=== PATIENT | female | born 1965 ===

== ENCOUNTER 2017-01-14 20:29 | Emergency (ER) | payer SELFPAY ==
[2017-01-14 20:29] VITALS: BMI 25.0
[2017-01-14 20:36] VITALS: BP 123/74; PULSE 81; RESP 18; TEMP 99; O2SAT 99
--- NOTE | 2017-01-14 20:50 | ED PDOC ---
HPI: General Adult Time Seen by Provider: 01/14/17 20:37 Chief Complaint (Nursing): Foreign Body Chief Complaint (Provider): Foreign Body History Per: Patient History/Exam Limitations: no limitations Onset/Duration Of Symptoms: Mins (30 minutes prior to arrival) Current Symptoms Are (Timing): Still Present Severity: Mild Pain Scale Rating Of: 0 Additional Complaint(s): 51 year old female with no pertinent medical history presents to the ED with complaints of getting a foreign object in her ear 30x minutes prior to arrival. She reports that she was cleaning her ears with a wet cotton swab and one of the tip got lodged into her left ear. She denies having any ear pain. PMD: not provided Past Medical History Reviewed: Historical Data, Nursing Documentation, Vital Signs Vital Signs: Last Vital Signs Temp 99 F 01/14/17 20:34 Pulse 81 01/14/17 20:34 Resp 18 01/14/17 20:34 BP 123/74 01/14/17 20:34 Pulse Ox 99 01/14/17 23:33 - Medical History PMH: No Chronic Diseases - Surgical History Surgical History: No Surg Hx - Family History Family History: States: No Known Family Hx - Social History Current smoker - smoking cessation education provided: Yes Drugs: Other (yes) - Immunization History Hx Tetanus Toxoid Vaccination: No Hx Influenza Vaccination: Yes Hx Pneumococcal Vaccination: No - Allergies Allergies/Adverse Reactions: Allergies Allergy/AdvReac Type Severity Reaction Status Date / Time No Known Allergies Allergy Verified 01/25/15 10:53 Review of Systems ROS Statement: Except As Marked, All Systems Reviewed And Found Negative ENT: Negative for: Ear Pain Physical Exam - Reviewed Nursing Documentation Reviewed: Yes Vital Signs Reviewed: Yes - Physical Exam Appears: Positive for: Well, Non-toxic, No Acute Distress Head Exam: Positive for: ATRAUMATIC, NORMOCEPHALIC Skin: Positive for: Normal Color, Warm, Dry ENT: Positive for: Other (cotton in left ear noted.) Cardiovascular/Chest: Positive for: Regular Rate, Rhythm Respiratory: Positive for: Normal Breath Sounds. Negative for: Respiratory Distress Neurologic/Psych: Positive for: Alert, Oriented (3x) - ECG O2 Sat by Pulse Oximetry: 99 (RA) Pulse Ox Interpretation: Normal Medical Decision Making Medical Decision Makin:37 Initial impression: 51 year old female with cotton in her left ear. Initial plan: Verbal consent acquired. Cotton ball is removed. TM is intact. No signs of erythema. Scribe Attestation: Documented by Halley Cobb, acting as a scribe for Elma Daniel PA-C. Provider Scribe Attestation: All medical record entries made by the Scribe were at my direction and personally dictated by me. I have reviewed the chart and agree that the record accurately reflects my personal performance of the history, physical exam, medical decision making, and the department course for this patient. I have also personally directed, reviewed, and agree with the discharge instructions and disposition. Disposition - Clinical Impression Clinical Impression: Foreign body in ear - Patient ED Disposition Is Patient to be Admitted: No - Disposition Disposition: Routine/Home Disposition Time: 20:45 Condition: FAIR Instructions: Ear Foreign Body (ED)
== END 2017-01-14 21:06 | disposition home or self-care (01) ==
LOC: H.ER 20:29
DX: T16.2XXA Foreign body in left ear, initial encounter (principal)